=== PATIENT | male | born 1990 | race Caucasian/White ===

== ENCOUNTER 2017-03-10 21:13 | Emergency (ER) | payer MEDICAID ==
[2017-03-10 21:22] VITALS: TEMP 98.2
[2017-03-10] MEDS ORDERED: ONDANSETRON DISINTEGRATING 4 MG TAB ONE (21:32)
[2017-03-10] MEDS ORDERED: LORazepam 1 MG TAB PO ONE (21:32)
[2017-03-10] MEDS ORDERED: ONDANSETRON DISINTEGRATING 4 MG TAB PO ONE (21:32)
[2017-03-10] MEDS ORDERED: LORazepam 1 MG TAB ONE (21:32)
[2017-03-10] MEDS ORDERED: CHLORDIAZEPOXIDE 25MG PREPK#6 BTL TAKEHOME ONE (21:35)
--- NOTE | 2017-03-10 21:35 | EDPHY ---
H & P Stated Complaint: detox Time Seen by Provider: 03/10/17 21:27 HPI/ROS: CHIEF COMPLAINT: Alcohol withdrawal HISTORY OF PRESENT ILLNESS: The patient is a 27-year-old man with a history of alcohol abuse and homelessness who comes to the emergency department complaining of withdrawal symptoms. He states that his last drink was about 11 o 'clock this morning. He was sober for a year and then and has been bingeing for the last 6 months. He would like to go to the alcohol recovery Center but They told him to come here 1st. He denies other medical complaints. No recent fevers or illnesses. He is slightly nauseous but has not vomited. REVIEW OF SYSTEMS: Constitutional: denies: chills, fever, recent illness, recent injury EENTM: denies: blurred vision, double vision, nose congestion Respiratory: denies: cough, shortness of breath Cardiac: denies: chest pain, irregular heart rate, lightheadedness, palpitations Gastrointestinal/Abdominal: denies: abdominal pain, diarrhea, nausea, vomiting, blood streaked stools Genitourinary: denies: dysuria, frequency, hematuria, pain Musculoskeletal: denies: joint pain, muscle pain Skin: denies: lesions, rash, jaundice, bruising Neurological: Mild tremors, denies: headache, numbness, paresthesia, tingling, dizziness, weakness Hematologic/Lymphatic: denies: blood clots, easy bleeding, easy bruising Immunologic/allergic: denies: HIV/AIDS, transplant EXAM: GENERAL: Thin, slightly anxious HEAD: Atraumatic, normocephalic. EYES: Pupils equal round and reactive to light, extraocular movements intact, sclera anicteric, conjunctiva are normal. ENT: TMs normal, nares patent, oropharynx clear without exudates. Moist mucous membranes. NECK: Normal range of motion, supple without lymphadenopathy or JVD. LUNGS: Breath sounds clear to auscultation bilaterally and equal. No wheezes rales or rhonchi. HEART: Regular rate and rhythm without murmurs, rubs or gallops. ABDOMEN: Soft, nontender, normoactive bowel sounds. No guarding, no rebound. No masses appreciated. BACK: No CVA tenderness, no spinal tenderness, step-offs or deformities EXTREMITIES: Normal range of motion, no pitting or edema. No clubbing or cyanosis. NEUROLOGICAL: Mild tremors, Cranial nerves II through XII grossly intact. Normal speech, normal gait. 5/5 strength, normal movement in all extremities, normal sensation PSYCH: Normal mood, normal affect. SKIN: Warm, dry, normal turgor, no visible rashes or lesions. Source: Patient Exam Limitations: No limitations - Personal History Current Tetanus/Diphtheria Vaccine: Unsure - Medical/Surgical History Hx Asthma: No Hx Chronic Respiratory Disease: No Hx Diabetes: No Hx Cardiac Disease: No Hx Renal Disease: No Hx Cirrhosis: No Hx Alcoholism: Yes Hx HIV/AIDS: No Hx Splenectomy or Spleen Trauma: No Other PMH: NO PMH - Family History Significant Family History: No pertinent family hx - Social History Smoking Status: Heavy smoker Alcohol Use: Heavy Drug Use: Marijuana Constitutional: Initial Vital Signs Temperature (C) 36.8 C 03/10/17 21:19 Heart Rate 96 03/10/17 21:19 Respiratory Rate 18 03/10/17 21:19 Blood Pressure 153/93 H 03/10/17 21:19 O2 Sat (%) 95 03/10/17 21:19 O2 Delivery Mode Room Air Medical Decision Making ED Course/Re-evaluation: Will treat the patient with Ativan and Zofran and observed. 10:15 p.m. the patient is doing well. We will send the patient to the alcohol recovery Center with a Librium prepack. Differential Diagnosis: Partial list of the Differential diagnosis considered include but were not limited to; alcohol withdrawal, benzodiazepine withdrawal, stimulant overdose and although unlikely based on the history and physical exam, I also considered infection, head injury, neuropathy. I discussed these differential diagnoses and the plan with the patient as well as the usual and expected course. The patient understands that the diagnosis is provisional and that in medicine we are not always correct and that further workup is often warranted. Usual and customary warnings were given. All of the patient's questions were answered. The patient was instructed to return to the emergency department should the symptoms at all worsen or return, otherwise to followup with the physician as we discussed. - Data Points Medications Given: Discontinued Medications Chlordiazepoxide (Librium 25 Mg Prepack#6) 1 btl TAKEHOME EDNOW ONE Stop: 03/10/17 21:36 Last Admin: 03/10/17 22:26 Dose: 1 btl Lorazepam (Ativan) 2 mg PO EDNOW ONE Stop: 03/10/17 21:33 Last Admin: 03/10/17 21:34 Dose: 2 mg Ondansetron HCl (Zofran Odt) 4 mg PO EDNOW ONE Stop: 03/10/17 21:33 Last Admin: 03/10/17 21:35 Dose: 4 mg Departure - Departure Disposition: Home, Routine, Self-Care Clinical Impression: Alcohol withdrawal Qualifiers: Complication of substance-induced condition: uncomplicated Qualified Code(s): F10.230 - Alcohol dependence with withdrawal, uncomplicated Condition: Fair Instructions: Alcohol Withdrawal (ED) Additional Instructions: Go directly to the Addiction recovery Center Referrals: NONE *PRIMARY CARE P,. [Primary Care Provider] - As per Instructions
[2017-03-10 22:32] VITALS: BP 144/88; PULSE 100; RESP 16; O2SAT 94
== END 2017-03-10 22:31 | disposition home or self-care (01) ==
DX: F10.230 Alcohol dependence with withdrawal, uncomplicated (principal); F17.200 Nicotine dependence, unspecified, uncomplicated

== ENCOUNTER 2017-11-05 21:02 | Emergency (ER) | payer OTHER, MEDICAID ==
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
[2017-11-05 22:07] VITALS: BP 132/82; PULSE 88; RESP 18; TEMP 97.9; O2SAT 95
== END 2017-11-05 21:42 | disposition home or self-care (01) ==
LOC: EDUNIT#
DX: S00.81XA Abrasion of other part of head, initial encounter (principal); F10.20 Alcohol dependence, uncomplicated; F17.200 Nicotine dependence, unspecified, uncomplicated; V48.0XXA Car driver injured in noncollision transport accident in nontraffic accident, initial encounter; Y92.410 Unspecified street and highway as the place of occurrence of the external cause; Y99.8 Other external cause status; Y93.89 Activity, other specified